=== PATIENT | male | born 2005 | race Caucasian/White ===

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

== ENCOUNTER 2023-01-02 13:22 | Inpatient (IN) ==
[2023-01-02] MEDS ORDERED: Al Hydrox/Mg Hydrox/Simet LIQ 30 ML UDC PO PRN (13:35)
[2023-01-03] MEDS: Nicotine PATCH 21 MG/24 HR PATCH TRANSDERM SCH (10:16)
[2023-01-03 20:04] VITALS: BP 123/72
[2023-01-04] MEDS: Nicotine PATCH 21 MG/24 HR PATCH TRANSDERM SCH (07:24)
[2023-01-04 08:52] LABS: HDL Cholesterol 39.1 mg/dL
== END 2023-01-04 12:10 | disposition home or self-care (01) | DRG 753 ==
LOC: BSU 18:53
PROVIDERS: ADMIT Psychiatry & Neurology Psychiatry; ATTEND Psychiatry & Neurology Psychiatry